=== PATIENT | female | born 1990 | race African-American/Black ===

== ENCOUNTER 2019-08-26 17:52 | Emergency (ER) | payer SELFPAY ==
[~2019-08-26] VITALS: Ht 165.1 cm; Wt 100.0 kg
[2019-08-26 17:53] VITALS: BP 111/89
== END 2019-08-26 18:22 | disposition left against medical advice (07) ==
LOC: ER 17:52
DX: R41.82 Altered mental status, unspecified (principal)
CPT/HCPCS: 99283